=== PATIENT | male | born 1985 | race African-American/Black ===

== ENCOUNTER 2017-04-25 20:33 | Emergency (ER) | payer SELFPAY | END 2017-04-25 21:59 | disposition home or self-care (01) | LOC: ER 20:33 | DX: K04.7 Periapical abscess without sinus (principal) | CPT/HCPCS: 99283 ==

== ENCOUNTER 2019-02-23 16:11 | Emergency (ER) | payer OTHER ==
[~2019-02-23] VITALS: Ht 175.3 cm; Wt 59.0 kg
[~2019-02-23 16:11] MED LIST: AMOX500C PO
[2019-02-23 16:29] VITALS: BP 138/81
[2019-02-23] MEDS: predniSONE 10 MG TABLET PO ONE (16:54)
[2019-02-23] MEDS: BENZONATATE 100 MG CAPSULE. PO ONE (16:54)
[2019-02-23] MEDS: ACETAMINOPHEN 500 MG TABLET PO ONE (16:54)
[2019-02-23] MEDS: IPRATRPIUM/ALBUTEROL 0.5/2.5MG 3 ML NEBU. NEB ONE (16:57)
--- NOTE | 2019-02-23 17:19 | RAD ---
CHEST PA LATERAL History: Cough. Fever. History of smoking. Comparison: None. Findings: Patchy right midlung ill-defined opacity. Calcified left lower lung granulomas. No pneumothorax. No pleural effusion. Normal heart size. Impression: 1. Patchy right midlung ill-defined opacity, may represent atelectasis or pneumonia. Recommend follow-up. Electronically signed by: Lalo Corcoran DO (02/23/2019 5:16 PM) [id number]
[2019-02-23 17:27] LABS: INFLUENZA A PATIENT NEGATIVE (NEGATIVE); INFLUENZA B PATIENT POSITIVE (NEGATIVE)
[2019-02-23] MEDS ORDERED: AZIT250T PO (17:42)
[2019-02-23] MEDS ORDERED: PRED50TA PO (17:42)
[2019-02-23] MEDS ORDERED: PROVENTIL HFA6.7 G2 INH (17:42)
[2019-02-23] MEDS ORDERED: BENZ100C PO (17:42)
--- NOTE | 2019-02-23 17:42 | PHYS DOC ---
Past Medical History Past Medical History: No Pertinent History Past Surgical History: No Surgical History Alcohol Use: None Drug Use: None Adult General Chief Complaint Chief Complaint: FEVER HPI HPI Patient is a 33 year old male patient who presents to the ED today complaining of subjective fevers, bodyaches, chills, cough, symptoms began 4 days ago after he got in close contact with a female friend who had similar symptoms. He is s a smoker Review of Systems Review of Systems Constitutional: Reports fever, body aches and chills Eyes: Denies change in visual acuity, redness, or eye pain [] HENT: Denies nasal congestion or sore throat [] Respiratory: Reports cough, denies shortness of breath [] Cardiovascular: No additional information not addressed in HPI [] GI: Denies abdominal pain, nausea, vomiting, bloody stools or diarrhea [] : Denies dysuria or hematuria [] Musculoskeletal: Denies back pain or joint pain [] Integument: Denies rash or skin lesions [] Neurologic: Denies headache, focal weakness or sensory changes [] All other systems were reviewed and found to be within normal limits, except as documented in this note. Current Medications Current Medications Current Medications Medications (Trade) Dose Ordered Sig/Ilan Start Time Stop Time Status Last Admin Dose Admin Acetaminophen (Tylenol) 1,000 mg 1X ONCE 02/23/19 17:00 02/23/19 17:01 DC 02/23/19 16:54 1,000 MG Albuterol/ Ipratropium (Duoneb) 3 ml 1X ONCE 02/23/19 17:00 02/23/19 17:01 DC 02/23/19 16:57 3 ML Benzonatate (Tessalon Perle) 100 mg 1X ONCE 02/23/19 17:00 02/23/19 17:01 DC 02/23/19 16:54 100 MG Prednisone (Prednisone) 50 mg 1X ONCE 02/23/19 17:00 02/23/19 17:01 DC 02/23/19 16:54 50 MG Allergies Allergies Allergies Coded Allergies Type Severity Reaction Last Updated Verified No Known Drug Allergies 04/25/17 No Physical Exam Physical Exam Constitutional: Well developed, well nourished, no acute distress, non-toxic appearance. [] HENT: Normocephalic, atraumatic, bilateral external ears normal, oropharynx mo ist, no oral exudates, nose normal. [] Eyes: PERRLA, EOMI, conjunctiva normal, no discharge. [] Neck: Normal range of motion, no tenderness, supple, no stridor. [] Cardiovascular:Heart rate regular rhythm, no murmur [] Lungs & Thorax: Bilateral breath sounds clear to auscultation [] Abdomen: Bowel sounds normal, soft, no tenderness, no masses, no pulsatile masses. [] Skin: Warm, dry, no erythema, no rash. [] Back: No tenderness, no CVA tenderness. [] Extremities: No tenderness, no cyanosis, no clubbing, ROM intact, no edema. [] Neurologic: Alert and oriented X 3, normal motor function, normal sensory function, no focal deficits noted. [] Psychologic: Affect normal, judgement normal, mood normal. [] Current Patient Data Vital Signs Vital Signs Date Time Temp Pulse Resp B/P (MAP) Pulse Ox O2 Delivery O2 Flow Rate FiO2 02/23/19 16:59 97 Room Air 02/23/19 16:29 100.2 105 18 138/81 (100) 100.2 Lab Values Laboratory Tests Test 02/23/19 16:39 Influenza Type A Antigen Negative (NEGATIVE) Influenza Type B Antigen Positive (NEGATIVE) EKG EKG [] Radiology/Procedures Radiology/Procedures []PROCEDURE: CHEST PA & LATERAL CHEST PA LATERAL History: Cough. Fever. History of smoking. Comparison: None. Findings: Patchy right midlung ill-defined opacity. Calcified left lower lung granulomas. No pneumothorax. No pleural effusion. Normal heart size. Impression: 1. Patchy right midlung ill-defined opacity, may represent atelectasis or pneumonia. Recommend follow-up. Electronically signed by: Joon Oliver DO (02/23/2019 5:16 PM) [id number] DICTATED and SIGNED BY: JOON OLIVER DO DATE: 02/23/19 1716 Course & Med Decision Making Course & Med Decision Making Pertinent Labs and Imaging studies reviewed. (See chart for details) This is a 33-year-old male patient presenting to the ED today with multiple complaints including subjective fevers, body aches, chills, cough, symptoms began 4 days ago. Temperature on arrival to the ED 100.2. Chest x-ray noted for possible right middle lobe pneumonia. Positive for influenza B, negative influenza A. Patient has been ill for more than 2 days, Tamiflu will not be of much benefit. Was discharged with azithromycin for the possible pneumonia on x-ray. Encouraged to consider smoking cessation. Instructed to rest and push fluids. Tylenol/Motrin for pain or fever. Follow-up with primary care doctor in the course of this week. Dragon Disclaimer Dragon Disclaimer This electronic medical record was generated, in whole or in part, using a voice recognition dictation system. Departure Departure Impression: Primary Impression: Influenza B Additional Impressions: Smoking addiction Right middle lobe pneumonia Fever Disposition: HOME, SELF-CARE Condition: STABLE Referrals: NO PCP (PCP) follow up with your doctor in 1-2 weeks Patient Instructions: Influenza A (H1N1), Pneumonia, Adult, [id number], Smoking Cessation Additional Instructions: You were evaluated in the emergency room you were positive for influenza B. This is a viral illness, you have been ill for more 2 days. At this point with influenza you need to push fluids, take Tylenol every 4 hours and Motrin every 6 hours. Maintain good hand hygiene, rest. You also have possible pneumonia on the right side of your lungs showing up on x-ray. We'll put you on antibiotics, ensure you complete them. Follow-up with your doctor in one week, come back to the ED at any point symptoms worsen. Scripts Benzonatate (TESSALON PERLE) 100 Mg Capsule 1 CAP PO TID, #30 CAP Prov: HECTOR COBB APRN 02/23/19 Albuterol Sulfate (Proventil Hfa) 6.7 Gm Hfa.aer.ad 1 PUFF INH PRN Q6HRS PRN for SHORTNESS OF BREATH, #1 INHALER Prov: HECTOR COBB APRN 02/23/19 Azithromycin (ZITHROMAX) 250 Mg Tablet 1 PKG PO UD, #1 PKG Prov: HECTOR COBB APRN 02/23/19 Prednisone (PREDNISONE) 50 Mg Tablet 1 TAB PO DAILY, #4 TAB Prov: HECTOR COBB APRN 02/23/19 Problem Qualifiers Additional Impressions: Right middle lobe pneumonia Pneumonia type: due to unspecified organism Qualified Codes: J18.9 - Pneumonia, unspecified organism Fever Fever type: unspecified Qualified Codes: R50.9 - Fever, unspecified HECTOR COBB APRN Feb 23, 2019 17:42
== END 2019-02-23 18:01 | disposition home or self-care (01) ==
LOC: ER 16:11
DX: J10.08 Influenza due to other identified influenza virus with other specified pneumonia (principal); F17.200 Nicotine dependence, unspecified, uncomplicated
CPT/HCPCS: 71046; 87804; 94640; 99285; J7512; J7620

== ENCOUNTER 2019-12-26 12:09 | Emergency (ER) | payer OTHER ==
[~2019-12-26] VITALS: Ht 172.7 cm; Wt 59.0 kg
[~2019-12-26 12:09] MED LIST changes: +AZIT250T PO; +BENZ100C PO; +PRED50TA PO; +PROVENTIL HFA6.7 G2 INH
[2019-12-26 13:07] VITALS: BP 158/92
[2019-12-26] MEDS ORDERED: LORazepam 0.5 MG TABLET PO ONE (13:30)
[2019-12-26 13:49] LABS: BILIRUBIN,URINE NEGATIVE (NEG); CLARITY,URINE CLEAR; COLOR,URINE YELLOW; NITRITE,URINE NEGATIVE (NEG); PH,URINE 6.5 (<5.0-8.0); PROTEIN,URINE NEGATIVE (NEG-TRACE); UROBILINOGEN,URINE 0.2 mg/dL (0.2 mg/dL)
[2019-12-26 13:55] LABS: AMPHETAMINE/METHAMPHETAMINE NEG (NEG); BARBITURATES NEG (NEG); BENZODIAZEPINES NEG (NEG); CANNABINOIDS POS (NEG); COCAINE NEG (NEG); METHADONE NEG (NEG); OPIATES NEG (NEG); PHENCYCLIDINE NEG (NEG)
[2019-12-26 13:57] LABS: BACTERIA,URINE 0 /HPF (0-FEW); RBC,URINE RARE /HPF (0-2); WBC,URINE RARE /HPF (0-4)
[2019-12-26] MEDS ORDERED: LORA-434 PO (14:41)
--- NOTE | 2019-12-26 14:42 | ED.ADGEN ---
Past Medical History Past Medical History: No Pertinent History Past Surgical History: No Surgical History Smoking Status: Former Smoker Alcohol Use: Occasionally Drug Use: None General Adult EDM: Chief Complaint: ANXIETY/PANIC ATTACK HPI: HPI: Patient is a 34 year old AA who presents to the emergency department with complaints of frequent panic attacks and left-sided numbness for the last week. Patient reports he had a left-sided headache a few days ago but currently denies any headache. He denies any weakness or recent injury. Patient denies any vision changes, nausea, vomiting, diarrhea, fever, cough, shortness of breath, chest pain, palpitations, abdominal pain, or body aches. He denies any suicidal or homicidal ideations. The patient states that he thinks he has been overthinking about stressful things in his life recently. He reports that he feels like he is unremarkable a lot of the time. He reports marijuana use on occasion but denies any other illicit drug use. Patient reports that he drinks socially he denies any cigarette use. The patient currently denies any pain. Review of Systems: Review of Systems: Complete ROS is negative unless otherwise noted in HPI. Current Medications: Current Medications Medications (Trade) Dose Ordered Sig/Ilan Start Time Stop Time Status Last Admin Dose Admin Lorazepam (Ativan) 1 mg 1X ONCE 12/26/19 13:30 12/26/19 13:31 DC 12/26/19 13:51 1 MG Allergies: Allergies: Allergies Coded Allergies Type Severity Reaction Last Updated Verified No Known Drug Allergies 04/25/17 No Physical Exam: PE: Constitutional: Well developed, well nourished, no acute distress, non-toxic appearance, appears anxious. [] HENT: Normocephalic, atraumatic, bilateral external ears normal, nose normal. [] Eyes: PERRLA, EOMI, conjunctiva normal, no discharge. [] Neck: Normal range of motion, no stridor. [] Cardiovascular:Heart rate regular rhythm Lungs & Thorax: Respirations even and unlabored, no retractions, no respiratory distress Skin: Warm, dry, no erythema, no rash. [] Extremities: No cyanosis, ROM intact, no edema. [] Neurologic: Alert and oriented X 3, no focal deficits noted. [] Psychologic: Affect normal, judgement normal, mood anxious Current Patient Data: Labs: Laboratory Tests Test 12/26/19 13:30 Urine Collection Type Unknown Urine Color Yellow Urine Clarity Clear Urine pH 6.5 (<5.0-8.0) Urine Specific [place] >=1.030 (1.000-1.030) Urine Protein Negative mg/dL (NEG-TRACE) Urine Glucose (UA) Negative mg/dL (NEG) Urine Ketones (Stick) Negative mg/dL (NEG) Urine Blood Negative (NEG) Urine Nitrite Negative (NEG) Urine Bilirubin Negative (NEG) Urine Urobilinogen Dipstick 0.2 mg/dL (0.2 mg/dL) Urine Leukocyte Esterase Negative (NEG) Urine RBC Rare /HPF (0-2) Urine WBC Rare /HPF (0-4) Urine Squamous Epithelial Cells None /LPF Urine Bacteria 0 /HPF (0-FEW) Urine Mucus Mod /LPF Urine Opiates Screen Neg (NEG) Urine Methadone Screen Neg (NEG) Urine Barbiturates Neg (NEG) Urine Phencyclidine Screen Neg (NEG) Urine Amphetamine/Methamphetamine Neg (NEG) Urine Benzodiazepines Screen Neg (NEG) Urine Cocaine Screen Neg (NEG) Urine Cannabinoids Screen Pos (NEG) Urine Ethyl Alcohol Neg (NEG) Vital Signs: Vital Signs Date Time Temp Pulse Resp B/P (MAP) Pulse Ox O2 Delivery O2 Flow Rate FiO2 12/26/19 13:07 98.6 81 18 158/92 (114) 99 Room Air 98.6 EKG: EKG: [] Heart Score: Risk Factors: Risk Factors: DM, Current or recent (<one month) smoker, HTN, HLP, family history of CAD, obesity. Risk Scores: Score 0 - 3: 2.5% MACE over next 6 weeks - Discharge Home Score 4 - 6: 20.3% MACE over next 6 weeks - Admit for Clinical Observation Score 7 - 10: 72.7% MACE over next 6 weeks - Early Invasive Strategies Radiology/Procedures: Radiology/Procedures: [] Course & Med Decision Making: Course & Med Decision Making Pertinent Labs and Imaging studies reviewed. (See chart for details) 34-year-old male who presents to the emergency department with complaints of frequent panic attacks and left-sided numbness. UA is unremarkable UDS is positive for marijuana, patient reported marijuana use. The patient was given 1 mg of Ativan, he reported feeling better after these medications. The patient denied any suicidal or homicidal ideations. I encouraged the patient to establish care with a primary care doctor I also encouraged him to follow-up with a mental health specialist for further evalu ation of anxiety and possible behavioral therapy treatment. We will prescribe 4 tablets of Ativan for the patient to take as needed for severe anxiety. I advised the patient to return to the ER if he began having suicidal or homicidal ideations Patient verbalized an understanding of home care, medications, follow-up, and return to ED instructions and was in agreement with the plan of care. [] William Disclaimer: William Disclaimer: This electronic medical record was generated, in whole or in part, using a voice recognition dictation system. Departure Departure Impression: Primary Impression: Panic attack as reaction to stress Disposition: 01 DC HOME SELF CARE/HOMELESS Condition: STABLE Referrals: NO PCP (PCP) Patient Instructions: Anxiety and Panic Attacks, [id number] Additional Instructions: Fill the prescription and use it as directed. Follow-up with a primary care doctor for a health physical. I recommend that you contact your EAP, for counseling/therapy. You may also follow-up with any of the behavioral health specialist provided to you in the packet that you were given. Return to the ER if you develop suicidal or homicidal ideations. [facility] [address] [place] [address] [facility] [address] [place] [address] [facility] [address] [facility] [place] [address] [facility] [address] [place] [address] [facility] [address] [place] [address] [facility] [address] [place] [address] [facility] [address] [place] [address] [facility] [address] [place] [address] [facility] [address] [place] [address] [facility] [address] [place] [address] Scripts Lorazepam (ATIVAN) 1 Mg Tablet 0.5-1 MG PO BID PRN for ANXIETY / AGITATION, #4 TAB 0 Refills Prov: ERICK MO APRN 12/26/19 ERICK MO APRN Dec 26, 2019 14:41
== END 2019-12-26 14:49 | disposition home or self-care (01) ==
LOC: ER 12:09
DX: F43.0 Acute stress reaction (principal); R20.0 Anesthesia of skin; R51.9 Headache, unspecified; Z87.891 Personal history of nicotine dependence
CPT/HCPCS: 80307; 81001; 99283

== ENCOUNTER 2020-01-15 16:24 | Emergency (ER) | payer SELFPAY ==
[~2020-01-15] VITALS: Ht 172.7 cm; Wt 59.0 kg
[~2020-01-15 16:24] MED LIST changes: +DIPH25TA64 PO; +LORA-434 PO; +LORA10CA PO; +METH4TAB2 PO
[2020-01-15] MEDS ORDERED: IV NORMAL SALINE 1000ML BAG 1,000 ML IV ONE (18:00)
[2020-01-15 18:01] LABS: RED BLOOD COUNT 4.78 x10^6/uL (4.30-5.70); WHITE BLOOD COUNT 17.6 x10^3/uL (4.0-11.0)
[2020-01-15 18:02] LABS: BASO % 0 % (0-3); EOS % 0 % (0-3); HEMATOCRIT 40.5 % (39.0-53.0); HEMOGLOBIN 13.5 g/dL (13.0-17.5); LYMPH # 1.3 x10^3/uL (1.0-4.8); LYMPH % 7 % (24-48); MEAN CORPUSCULAR HEMOGLOBIN 28 pg (25-35); MEAN CORPUSCULAR HGB CONC 33 g/dL (31-37); MEAN CORPUSCULAR VOLUME 85 fL (79-100); MONO % 11 % (0-9); NEUT # 14.3 x10^3/uL (1.8-7.7); NEUT % 81 % (31-73); PLATELET COUNT 280 x10^3/uL (140-400); RED CELL DISTRIBUTION WIDTH 14.1 % (11.5-14.5)
[2020-01-15 19:10] LABS: BILIRUBIN,URINE NEGATIVE (NEG); CLARITY,URINE CLEAR; COLOR,URINE YELLOW; NITRITE,URINE NEGATIVE (NEG); PROTEIN,URINE NEGATIVE (NEG-TRACE); UROBILINOGEN,URINE 0.2 mg/dL (0.2 mg/dL)
[2020-01-15 19:12] LABS: AMPHETAMINE/METHAMPHETAMINE NEG (NEG); BARBITURATES NEG (NEG); BENZODIAZEPINES NEG (NEG); CANNABINOIDS POS (NEG); COCAINE NEG (NEG); METHADONE NEG (NEG); OPIATES NEG (NEG); PHENCYCLIDINE NEG (NEG)
[2020-01-15 19:19] LABS: % BANDS 7 % (0-9); % EOS 1 % (0-5); % LYMPHS 8 % (24-48); % MONOS 9 % (0-10); % SEGS 75 % (35-66); PLT ESTIMATE ADEQUATE (ADEQUATE); TOXIC GRANULATION SLIGHT; TOXIC VACUOLATION SLIGHT
[2020-01-15 19:20] LABS: PLATELET CLUMP PRESENT
[2020-01-15 19:32] LABS: BACTERIA,URINE 0 /HPF (0-FEW); RBC,URINE 0 /HPF (0-2); WBC,URINE RARE /HPF (0-4)
[2020-01-15 19:50] LABS: CALCIUM 8.6 mg/dL (8.5-10.1); CREATININE 0.9 mg/dL (0.7-1.3); GFR 117.6; POTASSIUM 3.6 mmol/L (3.5-5.1)
[2020-01-15 19:55] LABS: ALBUMIN/GLOBULIN RATIO 0.8 (1.0-1.7); TOTAL BILIRUBIN 0.7 mg/dL (0.2-1.0); TOTAL PROTEIN 6.8 g/dL (6.4-8.2)
--- NOTE | 2020-01-15 20:38 | ED.ADGEN ---
Past Medical History Past Medical History: No Pertinent History Past Surgical History: No Surgical History Smoking Status: Former Smoker Alcohol Use: Occasionally Drug Use: None Social History Narrative: "I STOPPED MARIJUANA 1 MONTH AGO." General Adult EDM: Chief Complaint: BACK PAIN OR INJURY HPI: HPI: Patient is a 34 year old AA male who presents to the emergency department with complaints of bilateral low back pain and intermittent episodes of excessive sweating for the last 2 days. Patient states that he noticed his urine was dark yesterday but he drank a lot of fluid and his urine looks normal today. He denies any dysuria, hematuria, difficulty urinating, saddle anesthesia, or loss of bowel/bladder control. Patient also complains of left eyelid swelling for the last week, he denies any vision changes or crusting of his eye, patient reports that his left eye has also been red and tearing. He denies any fever, shortness of breath, chest pain, palpitations, abdominal pain, nausea, vomiting, or diarrhea. Patient reports he has had a dry cough for weeks, he states that he attributes it to his history of smoking. He denies any recent contact with anybody who has COVID-19. Patient states the back pain was severe last night but he currently denies any pain. Review of Systems: Review of Systems: Complete ROS is negative unless otherwise noted in HPI. Current Medications: Current Medications Medications (Trade) Dose Ordered Sig/Ilan Start Time Stop Time Status Last Admin Dose Admin Sodium Chloride 1,000 ml @ 1,000 mls/hr 1X ONCE 01/15/20 18:00 01/15/20 18:59 DC 01/15/20 18:07 1,000 MLS/HR Allergies: Allergies: Allergies Coded Allergies Type Severity Reaction Last Updated Verified No Known Drug Allergies 04/25/17 No Physical Exam: PE: See Above Constitutional: Well developed, well nourished, no acute distress, non-toxic appearance. [] HENT: Normocephalic, atraumatic, bilateral external ears normal, oropharynx moist, no oral exudates, nose normal. [] Eyes: PERRLA, EOMI, bilateral conjunctiva injected, mild swelling noted to the upper and lower eyelids, no purulent drainage, no periorbital tenderness to palpation Neck: Normal range of motion, no stridor. [] Cardiovascular:Heart rate regular rhythm, Lungs & Thorax: Respirations even and unlabored, no retractions, no respiratory distress Abdomen: soft, no tenderness, no masses Skin: Warm, dry, no erythema, no rash. [] Back: No tenderness, no CVA tenderness. [] Extremities: No cyanosis, ROM intact, no edema. [] Neurologic: Alert and oriented X 3, normal motor function, normal sensory function, no focal deficits noted. [] Psychologic: Affect normal, judgement normal, mood normal. [] Current Patient Data: Labs: Laboratory Tests Test 01/15/20 16:55 01/15/20 17:15 01/15/20 18:45 01/15/20 19:25 Glucose (Fingerstick) 149 mg/dL (70-99) H White Blood Count 17.6 x10^3/uL (4.0-11.0) H Red Blood Count 4.78 x10^6/uL (4.30-5.70) Hemoglobin 13.5 g/dL (13.0-17.5) Hematocrit 40.5 % (39.0-53.0) Mean Corpuscular Volume 85 fL (79-100) Mean Corpuscular Hemoglobin 28 pg (25-35) Mean Corpuscular Hemoglobin Concent 33 g/dL (31-37) Red Cell Distribution Width 14.1 % (11.5-14.5) Platelet Count 280 x10^3/uL (140-400) Neutrophils (%) (Auto) 81 % (31-73) H Lymphocytes (%) (Auto) 7 % (24-48) L Monocytes (%) (Auto) 11 % (0-9) H Eosinophils (%) (Auto) 0 % (0-3) Basophils (%) (Auto) 0 % (0-3) Neutrophils # (Auto) 14.3 x10^3/uL (1.8-7.7) H Lymphocytes # (Auto) 1.3 x10^3/uL (1.0-4.8) Monocytes # (Auto) 2.0 x10^3/uL (0.0-1.1) H Eosinophils # (Auto) 0.0 x10^3/uL (0.0-0.7) Basophils # (Auto) 0.0 x10^3/uL (0.0-0.2) Segmented Neutrophils % 75 % (35-66) H Band Neutrophils % 7 % (0-9) Lymphocytes % 8 % (24-48) L Monocytes % 9 % (0-10) Eosinophils % 1 % (0-5) Toxic Granulation Slight Toxic Vacuolation Slight Platelet Estimate Adequate (ADEQUATE) Platelet Clumps, EDTA Present Urine Collection Type Void Urine Color Yellow Urine Clarity Clear Urine pH 6.0 (<5.0-8.0) Urine Specific [place] 1.025 (1.000-1.030) Urine Protein Negative mg/dL (NEG-TRACE) Urine Glucose (UA) Negative mg/dL (NEG) Urine Ketones (Stick) Trace mg/dL (NEG) Urine Blood Negative (NEG) Urine Nitrite Negative (NEG) Urine Bilirubin Negative (NEG) Urine Urobilinogen Dipstick 0.2 mg/dL (0.2 mg/dL) Urine Leukocyte Esterase Negative (NEG) Urine RBC 0 /HPF (0-2) Urine WBC Rare /HPF (0-4) Urine Squamous Epithelial Cells None /LPF Urine Bacteria 0 /HPF (0-FEW) Urine Mucus Marked /LPF Urine Opiates Screen Neg (NEG) Urine Methadone Screen Neg (NEG) Urine Barbiturates Neg (NEG) Urine Phencyclidine Screen Neg (NEG) Urine Amphetamine/Methamphetamine Neg (NEG) Urine Benzodiazepines Screen Neg (NEG) Urine Cocaine Screen Neg (NEG) Urine Cannabinoids Screen Pos (NEG) Urine Ethyl Alcohol Neg (NEG) Sodium Level 137 mmol/L (136-145) Potassium Level 3.6 mmol/L (3.5-5.1) Chloride Level 102 mmol/L (98-107) Carbon Dioxide Level 25 mmol/L (21-32) Anion Gap 10 (6-14) Blood Urea Nitrogen 9 mg/dL (8-26) Creatinine 0.9 mg/dL (0.7-1.3) Estimated GFR (Cockcroft-Gault) 117.6 BUN/Creatinine Ratio 10 (6-20) Glucose Level 89 mg/dL (70-99) Calcium Level 8.6 mg/dL (8.5-10.1) Total Bilirubin 0.7 mg/dL (0.2-1.0) Aspartate Amino Transferase (AST) 13 U/L (15-37) L Alanine Aminotransferase (ALT) 21 U/L (16-63) Alkaline Phosphatase 46 U/L (46-116) Total Protein 6.8 g/dL (6.4-8.2) Albumin 3.0 g/dL (3.4-5.0) L Albumin/Globulin Ratio 0.8 (1.0-1.7) L Laboratory Tests 01/15/20 17:15 Laboratory Tests 01/15/20 19:25 Vital Signs: Vital Signs Date Time Temp Pulse Resp B/P (MAP) Pulse Ox O2 Delivery O2 Flow Rate FiO2 01/15/20 22:52 88 120/63 (82) 97 Room Air 01/15/20 16:43 98.2 24 98.2 EKG: EKG: [] Heart Score: Risk Factors: Risk Factors: DM, Current or recent (<one month) smoker, HTN, HLP, family history of CAD, obesity. Risk Scores: Score 0 - 3: 2.5% MACE over next 6 weeks - Discharge Home Score 4 - 6: 20.3% MACE over next 6 weeks - Admit for Clinical Observation Score 7 - 10: 72.7% MACE over next 6 weeks - Early Invasive Strategies Radiology/Procedures: Radiology/Procedures: PROCEDURE: CT LUMBAR SPINE WO CONTRAST EXAMINATION: CT LUMBAR SPINE WO CONTRAST, 01/15/2020 8:21 PM CLINICAL INDICATION: Intermittent low back pain COMPARISON: None TECHNIQUE: Helical CT imaging performed of the lumbar spine without the use of intravenous contrast. Sagittal and coronal reformats were obtained. One or more of the following individualized dose reduction techniques were utilized for this examination: 1. Automated exposure control 2. Adjustment of the mA and/or kV according to patient size 3. Use of iterative reconstruction technique. FINDINGS: No acute fracture. Alignment is normal. Disc spaces are maintained and facet joints are normal. There is transitional anatomy at the lumbosacral junction on the left. No evidence of disc herniation. No canal or foraminal narrowing. Visualized portion of the retroperitoneum is normal. IMPRESSION: Normal CT of the lumbar spine.[] PROCEDURE: CHEST PA & LATERAL EXAM: CHEST PA LATERAL INDICATION: Reason: dry cough and intermittent back pain / Spl. Instructions: / History: . TECHNIQUE: PA and lateral views COMPARISON: Chest x-ray 02/23/2019. FINDINGS: The heart size is normal. The great vessels appear unremarkable. There is no hilar or mediastinal mass. The lungs show consolidation in the right lower lobe and to a lesser extent in the right middle lobe. Possible developing infiltrate in the medial lingula as well. There is no pleural effusion or pneumothorax. There are no significant osseous abnormalities. IMPRESSION: Multifocal pneumonia involving the lower lobe and right middle lobe, possibly the lingula as well.. Course & Med Decision Making: Course & Med Decision Making Pertinent Labs and Imaging studies reviewed. (See chart for details) []I have reviewed the PA/DIAMOND BLENDER's note and Plan of Care. I was available for consultation as needed during the patient's visit in the emergency department. I agree with the clinical impression, plans and disposition. Noraon Disclaimer: William Disclaimer: This electronic medical record was generated, in whole or in part, using a voice recognition dictation system. Departure Departure Impression: Primary Impression: Right middle lobe pneumonia Additional Impressions: Right lower lobe pneumonia Person under investigation for COVID-19 Conjunctivitis Disposition: 01 DC HOME SELF CARE/HOMELESS Condition: STABLE Referrals: NO PCP (PCP) Patient Instructions: Conjunctivitis (Viral and Bacterial), Pneumonia, Adult, [id number] Additional Instructions: Fill the prescription(s) and use as directed. Alternate Tylenol and ibuprofen as needed for pain/fever. Apply warm, moist washcloths to eyes needed for comfort. Avoid airway irritants such as dust, pollen, smoke, perfumes, and animal dander. Increase clear fluids. Follow the following COVID-19 instructions: Return to the ER if your symptoms worsen, you become short of breath, or you develop a fever. You have been tested for or diagnosed with COVID-19. It is an infection caused by a new type of coronavirus. COVID-19 will cause cold-like or mild flu symptoms in most. It can cause more severe symptoms like problems breathing in some. There is no treatment for COVID-19. The body will clear the infection over time. Self-care will help to ease discomfort. Steps to Take: Self-Care Rest as needed. Healthy habits may help you feel better. Steps include: Choose healthy foods including fruits and vegetables. Drink water throughout the day. Get plenty of sleep each night. If you smoke, try to quit. It may ease breathing. Avoid alcohol. Keep Others Healthy The virus can spread to others. Droplets are released every time you sneeze or cough. The droplets can get into the mouth, nose, or eyes of people near you and lead to infection. To lower the chances of spreading COVID-19 to others: Stay at home until your doctor has said it is safe to leave. If you tested positive this will mean staying isolated until both of the following are true: At least 7 days have passed since the start of illness. You are free of fever for at least 72 hours without the use of medicine. During this time: - Avoid public areas, events, or transportation. Do not return to work or school until your doctor has said it is safe to do so. - Call ahead if you need to go to a medical center. Let them know you may have COVID-19. It will help them guide you where to go. They may also ask you to wear a facemask when you come to the office. - If you call for emergency medical services, let them know you may have COVID- 19. While at home: - Try to avoid close contact with others. Stay about 6 feet away. - If possible, spend most of your time in a separate room from others. - Use a face mask if you will be in close contact with others such as sharing a room or vehicle. - Have someone wipe down common surfaces in the home. Use household regional facilities specialist every day on areas like doorknobs, counters, or sinks. - Cough or sneeze into a tissue. Throw the tissue away right after use. If a tissue is not available, cough or sneeze into your elbow. - Wash your hands often. Wash them after sneezing or coughing. Use soap and water and wash for at least 20 seconds. Alcohol based hand distributor cleaner can be used if soap and water is not available. - Do not prepare food for others. Avoid sharing personal items like forks, spoons, or toothbrushes. - Avoid close contact with pets while you are sick. There is no evidence of the virus passing to pets. This is a safety step until more is known about this virus. Isolation can be frustrating. Social interaction can help. Keep in touch with friends and family through phone and tech options. You can still interact with others in your home, just keep a safe distance of about 6 feet. Follow-up: Your doctors office will check in with you to see if there are any changes in your health. You may be asked to keep track of symptoms to share with them. They will also let you know when you are clear to be in public again. Problems to Look Out For: Contact your doctor if your recovery is not going as you expect. Get emergency care if you have problems such as: - Trouble breathing - Nonstop chest pain or pressure - Changes in awareness, confusion, or problems waking - Lips or face have bluish color - Worsening of symptoms If you think you have an emergency, call for emergency medical services right away. As taken from [facility] [address] [place] [address] [facility] [address] [place] [address] [facility] [address] [facility] [place] [address] [facility] [address] [place] [address] [facility] [address] [place] [address] [address] [place] [address] [address] [place] [address] [facility] [place] [address] [facility] [address] [place] [address] [facility] Department [address] [place] [address] Scripts Polymyxin B Sulf/Trimethoprim (POLYTRIM EYE DROPS) 10 Ml Drops 2 DROP EACHEYE Q6HRS for 7 Days, #10 ML 0 Refills Prov: ERICK MO APRN 01/15/20 Azithromycin (AZITHROMYCIN TABLET) 250 Mg Tablet 1 PKG PO UD for 5 Days, #6 TAB 0 Refills 2 the first day followed by 1 for days 2-5 Prov: ERICK MO APRN 01/15/20 Problem Qualifiers Primary Impression: Right middle lobe pneumonia Pneumonia type: due to unspecified organism Qualified Codes: J18.9 - Pneumonia, unspecified organism Additional Impressions: Right lower lobe pneumonia Pneumonia type: due to unspecified organism Qualified Codes: J18.9 - Pneumonia, unspecified organism Conjunctivitis Conjunctivitis type: acute Acute conjunctivitis type: unspecified Laterality: bilateral Qualified Codes: H10.33 - Unspecified acute conjunctivitis, bilateral ERICK MO APRN Jan 15, 2020 20:38 CHARLETTE OSBORN MD Jan 15, 2020 23:59
--- NOTE | 2020-01-15 21:03 | RAD ---
EXAMINATION: CT LUMBAR SPINE WO CONTRAST, 01/15/2020 8:21 PM CLINICAL INDICATION: Intermittent low back pain COMPARISON: None TECHNIQUE: Helical CT imaging performed of the lumbar spine without the use of intravenous contrast. Sagittal and coronal reformats were obtained. One or more of the following individualized dose reduction techniques were utilized for this examination: 1. Automated exposure control 2. Adjustment of the mA and/or kV according to patient size 3. Use of iterative reconstruction technique. FINDINGS: No acute fracture. Alignment is normal. Disc spaces are maintained and facet joints are normal. There is transitional anatomy at the lumbosacral junction on the left. No evidence of disc herniation. No canal or foraminal narrowing. Visualized portion of the retroperitoneum is normal. IMPRESSION: Normal CT of the lumbar spine. Electronically signed by: Cammie Chong MD (01/15/2020 9:00 PM) [id number]
--- NOTE | 2020-01-15 21:45 | RAD ---
EXAM: CHEST PA LATERAL INDICATION: Reason: dry cough and intermittent back pain / Spl. Instructions: / History: . TECHNIQUE: PA and lateral views COMPARISON: Chest x-ray 02/23/2019. FINDINGS: The heart size is normal. The great vessels appear unremarkable. There is no hilar or mediastinal mass. The lungs show consolidation in the right lower lobe and to a lesser extent in the right middle lobe. Possible developing infiltrate in the medial lingula as well. There is no pleural effusion or pneumothorax. There are no significant osseous abnormalities. IMPRESSION: Multifocal pneumonia involving the lower lobe and right middle lobe, possibly the lingula as well.. Electronically signed by: Ashley Guzman MD (01/15/2020 9:42 PM) [facility] [place]
[2020-01-15] MEDS ORDERED: AZIT250T6 PO (22:00)
[2020-01-15] MEDS ORDERED: POLY10DR EACHEYE (22:00)
[2020-01-15 22:52] VITALS: BP 120/63
== END 2020-01-15 23:02 | disposition home or self-care (01) ==
LOC: ER 16:24
DX: J18.9 Pneumonia, unspecified organism (principal); H10.33 Unspecified acute conjunctivitis, bilateral; R61 Generalized hyperhidrosis; R60.0 Localized edema; R05 Cough; Z87.891 Personal history of nicotine dependence
CPT/HCPCS: 36415; 71046; 72131; 80053; 80307; 81001; 82962; 85007; 85025; 96360; 99285; J7030

== ENCOUNTER 2020-06-26 14:00 | Emergency (ER) | payer OTHER ==
[~2020-06-26] VITALS: Ht 172.7 cm; Wt 59.2 kg
[~2020-06-26 14:00] MED LIST changes: +AZIT250T6 PO; +POLY10DR EACHEYE
[2020-06-26 14:09] VITALS: BP 121/78
[2020-06-26] MEDS ORDERED: FLUORESCEIN OPHTH TEST STRIP. OS ONE (15:00)
[2020-06-26] MEDS ORDERED: TETRACAINE 0.5% OPHTH SOLUTION 4ML BOTTLE. OS ONE (15:00)
[2020-06-26] MEDS ORDERED: POLY10DR LEFTEYE (15:33)
--- NOTE | 2020-06-26 15:34 | ED.ADGEN ---
Past Medical History Past Medical History: No Pertinent History Past Surgical History: No Surgical History Smoking Status: Former Smoker Alcohol Use: Occasionally Drug Use: None General Adult EDM: Chief Complaint: EYE PROBLEMS HPI: HPI: Patient is a 34 year old AA male who presents to the emergency department with complaints of left eye redness, and left upper and lower eyelid swelling since awakening this morning. Patient denies any itching, crusting, or tearing from his eye. He denies any purulent drainage. Patient denies any recent injury, fever, decreased visual acuity, photosensitivity, or pain with ocular movements. Patient currently denies any pain. Review of Systems: Review of Systems: Complete ROS is negative unless otherwise noted in HPI. Current Medications: Current Medications Medications (Trade) Dose Ordered Sig/Ilan Start Time Stop Time Status Last Admin Dose Admin Fluorescein Sodium (Ful-Melinda) 1 strip 1X ONCE 06/26/20 15:00 06/26/20 15:01 DC Tetracaine HCl (Tetracaine) 1 drop 1X ONCE 06/26/20 15:00 06/26/20 15:01 DC Allergies: Allergies: Allergies Coded Allergies Type Severity Reaction Last Updated Verified No Known Drug Allergies 04/25/17 No Physical Exam: PE: See Above Constitutional: Well developed, well nourished, no acute distress, non-toxic appearance. [] HENT: Normocephalic, atraumatic, bilateral external ears normal, nose normal. [] Eyes: PERRLA, EOMI, right eye conjunctiva normal, no discharge bilaterally, no photosensitivity; left eye conjunctive are injected, significant edema of left upper and lower eyelids, no visible hordeolum or chalazion. [] Neck: Normal range of motion, no stridor. [] Cardiovascular:Heart rate regular rhythm Lungs & Thorax: Respirations even and unlabored, no retractions, no respiratory distress Skin: Warm, dry, no rash; mild erythema of left upper and lower eyelids, no tenderness to palpation of left orbit Extremities: No cyanosis, ROM intact, no edema. [] Neurologic: Alert and oriented X 3, no focal deficits noted. [] Psychologic: Affect normal, judgement normal, mood normal. [] Current Patient Data: Vital Signs: Vital Signs Date Time Temp Pulse Resp B/P (MAP) Pulse Ox O2 Delivery O2 Flow Rate FiO2 06/26/20 14:09 98.1 81 18 121/78 (92) 96 Room Air 98.1 EKG: EKG: [] Heart Score: C/O Chest Pain: No Risk Scores: Score 0 - 3: 2.5% MACE over next 6 weeks - Discharge Home Score 4 - 6: 20.3% MACE over next 6 weeks - Admit for Clinical Observation Score 7 - 10: 72.7% MACE over next 6 weeks - Early Invasive Strategies Radiology/Procedures: Radiology/Procedures: Using tetracaine and fluroscein the patient's eye was examined under Wood's lamp and no area of uptake was noted. Patient's ocular symptoms have stabilized while they have been evaluated in the department and are appropriate for outpatient work up. No evidence of ruptured globe, retinal detachment, acute angle closure glaucoma, or deep space infection. Plan for 24 hour ophthalmologic follow up. [] Course & Med Decision Making: Course & Med Decision Making Pertinent Labs and Imaging studies reviewed. (See chart for details) [] Dragon Disclaimer: Dragon Disclaimer: This electronic medical record was generated, in whole or in part, using a voice recognition dictation system. Departure Departure Impression: Primary Impression: Conjunctivitis Additional Impression: Eye swollen, left Disposition: HOME / SELF CARE / HOMELESS Condition: STABLE Referrals: RONAL NARAYANAN MD (PCP) DEVANG RODRIGUEZ MD Patient Instructions: Conjunctivitis (Viral and Bacterial) Additional Instructions: Fill the prescription(s) and use as directed. Apply cool compress to left eye as needed for comfort. Recommend use of baby shampoo to wash eyelids. Follow-up with Dr. Rodriguez for reevaluation tomorrow, follow-up with your primary care doctor this week, return to the emergency room if your symptoms worsen. Scripts Polymyxin B Sulf/Trimethoprim (POLYTRIM EYE DROPS) 10 Ml Drops 2 DROP LEFTEYE Q6HRS for 7 Days, #10 ML 0 Refills Prov: ERICK MO APRN 06/26/20 Attending Signature Attending Signature I have participated in the care of this patient and I have reviewed and agree with all pertinent clinical information above including history, exam, and recommendations. Problem Qualifiers Primary Impression: Conjunctivitis Conjunctivitis type: acute Acute conjunctivitis type: unspecified Laterality: left Qualified Codes: H10.32 - Unspecified acute conjunctivitis, left eye ERICK MO BUSINESS SUPPORT ASSISTANT Jun 26, 2020 15:33 SOFIE TO DO Jun 26, 2020 18:31
== END 2020-06-26 15:45 | disposition home or self-care (01) ==
LOC: ER 14:00
DX: H10.32 Unspecified acute conjunctivitis, left eye (principal); R60.0 Localized edema; Z87.891 Personal history of nicotine dependence
CPT/HCPCS: 99283

== ENCOUNTER 2020-08-29 10:46 | Emergency (ER) | payer OTHER ==
[~2020-08-29] VITALS: Ht 172.7 cm; Wt 66.2 kg
[~2020-08-29 10:46] MED LIST changes: +POLY10DR LEFTEYE
[2020-08-29] MEDS ORDERED: ASPIRIN 325 MG TABLET PO ONE (11:15)
[2020-08-29] MEDS ORDERED: LIDO:MAALOX 1:1 20 ML SINGLE DOSE. SWSW ONE (11:15)
[2020-08-29 11:37] LABS: CALCIUM 8.2 mg/dL (8.5-10.1); CREATININE 0.9 mg/dL (0.7-1.3); GFR 116.9; POTASSIUM 4.1 mmol/L (3.5-5.1)
[2020-08-29 11:39] LABS: BASO % 1 % (0-3); EOS # 0.1 x10^3/uL (0.0-0.7); EOS % 3 % (0-3); HEMATOCRIT 41.3 % (39.0-53.0); HEMOGLOBIN 13.7 g/dL (13.0-17.5); LYMPH # 2.3 x10^3/uL (1.0-4.8); LYMPH % 48 % (24-48); MEAN CORPUSCULAR HEMOGLOBIN 29 pg (25-35); MEAN CORPUSCULAR HGB CONC 33 g/dL (31-37); MEAN CORPUSCULAR VOLUME 86 fL (79-100); MONO # 0.7 x10^3/uL (0.0-1.1); MONO % 15 % (0-9); NEUT # 1.6 x10^3/uL (1.8-7.7); NEUT % 33 % (31-73); PLATELET COUNT 248 x10^3/uL (140-400); RED CELL DISTRIBUTION WIDTH 15.3 % (11.5-14.5); WHITE BLOOD COUNT 4.7 x10^3/uL (4.0-11.0)
[2020-08-29 11:43] LABS: ALBUMIN 3.6 g/dL (3.4-5.0); ALBUMIN/GLOBULIN RATIO 1.1 (1.0-1.7); TOTAL BILIRUBIN 0.2 mg/dL (0.2-1.0); TOTAL PROTEIN 6.9 g/dL (6.4-8.2)
--- NOTE | 2020-08-29 11:49 | RAD ---
INDICATION: Reason: chest discomfort / Spl. Instructions: / History: COMPARISON: January 2020 FINDINGS: Single view of chest obtained. No focal airspace consolidation. Cardiomediastinal contour unremarkable. No acute osseous abnormality. IMPRESSION: * No focal airspace consolidation or edema. Electronically signed by: Selvin Wylie MD (08/29/2020 11:47 AM) [id number]
--- NOTE | 2020-08-29 11:52 | PHYS DOC ---
Past Medical History Past Medical History: No Pertinent History Past Surgical History: Other Additional Past Surgical Histo: achilles tendon repair Smoking Status: Current Every Day Smoker Additional Information: 2 cigars daily Alcohol Use: Occasionally Drug Use: None General Adult EDM: Chief Complaint: CHEST PAIN HPI: HPI: Patient is a 35 year old male with no significant medical history who presents to the ED today complaining of chest discomfort that began this morning after a night of "heavy drinking and smoking cigarettes. Patient denies any pain. Denies any nausea, vomiting, diaphoresis, abdominal pain. Denies any need for help with alcohol use. He states he had 2 half pints of hard liquor with friends. Patient denies any personal family history of cardiac events including heart attack and before the age of 50 Review of Systems: Review of Systems: Constitutional: Denies fever or chills. [] Eyes: Denies change in visual acuity. [] HENT: Denies nasal congestion or sore throat. [] Respiratory: Denies cough or shortness of breath. [] Cardiovascular: Reports chest discomfort GI: Denies abdominal pain, nausea, vomiting, bloody stools or diarrhea. [] : Denies dysuria. [] Musculoskeletal: Denies back pain or joint pain. [] Integument: Denies rash. [] Neurologic: Denies headache, focal weakness or sensory changes. [] Psychiatric: Denies depression or anxiety. [] Heart Score: C/O Chest Pain: Yes HEART Score for Chest Pain: HEART Score for Chest Pain Response (Comments) Value History Slighlty/Non-Suspicious 0 ECG Normal 0 Age < 45 0 Risk Factors No Risk Factors 0 Troponin < Normal Limit 0 Total 0 Risk Factors: Risk Factors: DM, Current or recent (<one month) smoker, HTN, HLP, family history of CAD, obesity. Risk Scores: Score 0 - 3: 2.5% MACE over next 6 weeks - Discharge Home Score 4 - 6: 20.3% MACE over next 6 weeks - Admit for Clinical Observation Score 7 - 10: 72.7% MACE over next 6 weeks - Early Invasive Strategies Current Medications: Current Medications Medications (Trade) Dose Ordered Sig/Ilan Start Time Stop Time Status Last Admin Dose Admin Aspirin (Enoc Aspirin) 325 mg 1X ONCE 08/29/20 11:15 08/29/20 11:16 DC Multi-Ingredient Mouthwash/Gargle (Gi Cocktail) 20 ml 1X ONCE 08/29/20 11:15 08/29/20 11:16 DC Allergies: Allergies: Allergies Coded Allergies Type Severity Reaction Last Updated Verified No Known Drug Allergies 08/29/20 No Physical Exam: PE: Constitutional: Well developed, well nourished, no acute distress, non-toxic appearance. [] HENT: Normocephalic, atraumatic, bilateral external ears normal, oropharynx moist, no oral exudates, nose normal. [] Eyes: PERRLA, EOMI, conjunctiva normal, no discharge. [] Neck: Normal range of motion, no tenderness, supple, no stridor. [] Cardiovascular:Heart rate regular rhythm, no murmur [] Lungs & Thorax: Bilateral breath sounds clear to auscultation [] Abdomen: Bowel sounds normal, soft, no tenderness, no masses, no pulsatile masses. [] Skin: Warm, dry, no erythema, no rash. [] Back: No tenderness, no CVA tenderness. [] Extremities: No tenderness, no cyanosis, no clubbing, ROM intact, no edema. [] Neurologic: Alert and oriented X 3, normal motor function, normal sensory function, no focal deficits noted. [] Psychologic: Affect normal, judgement normal, mood normal. [] Current Patient Data: Labs: Laboratory Tests Test 08/29/20 11:05 White Blood Count 4.7 x10^3/uL (4.0-11.0) Red Blood Count 4.80 x10^6/uL (4.30-5.70) Hemoglobin 13.7 g/dL (13.0-17.5) Hematocrit 41.3 % (39.0-53.0) Mean Corpuscular Volume 86 fL (79-100) Mean Corpuscular Hemoglobin 29 pg (25-35) Mean Corpuscular Hemoglobin Concent 33 g/dL (31-37) Red Cell Distribution Width 15.3 % (11.5-14.5) H Platelet Count 248 x10^3/uL (140-400) Neutrophils (%) (Auto) 33 % (31-73) Lymphocytes (%) (Auto) 48 % (24-48) Monocytes (%) (Auto) 15 % (0-9) H Eosinophils (%) (Auto) 3 % (0-3) Basophils (%) (Auto) 1 % (0-3) Neutrophils # (Auto) 1.6 x10^3/uL (1.8-7.7) L Lymphocytes # (Auto) 2.3 x10^3/uL (1.0-4.8) Monocytes # (Auto) 0.7 x10^3/uL (0.0-1.1) Eosinophils # (Auto) 0.1 x10^3/uL (0.0-0.7) Basophils # (Auto) 0.0 x10^3/uL (0.0-0.2) Sodium Level 145 mmol/L (136-145) Potassium Level 4.1 mmol/L (3.5-5.1) Chloride Level 109 mmol/L (98-107) H Carbon Dioxide Level 26 mmol/L (21-32) Anion Gap 10 (6-14) Blood Urea Nitrogen 12 mg/dL (8-26) Creatinine 0.9 mg/dL (0.7-1.3) Estimated GFR (Cockcroft-Gault) 116.9 BUN/Creatinine Ratio 13 (6-20) Glucose Level 123 mg/dL (70-99) H Calcium Level 8.2 mg/dL (8.5-10.1) L Magnesium Level 2.0 mg/dL (1.8-2.4) Total Bilirubin 0.2 mg/dL (0.2-1.0) Aspartate Amino Transferase (AST) 15 U/L (15-37) Alanine Aminotransferase (ALT) 22 U/L (16-63) Alkaline Phosphatase 46 U/L (46-116) Total Protein 6.9 g/dL (6.4-8.2) Albumin 3.6 g/dL (3.4-5.0) Albumin/Globulin Ratio 1.1 (1.0-1.7) Lipase 52 U/L (73-393) L Laboratory Tests 08/29/20 11:05 Laboratory Tests 08/29/20 11:05 Vital Signs: Vital Signs Date Time Temp Pulse Resp B/P (MAP) Pulse Ox O2 Delivery O2 Flow Rate FiO2 08/29/20 10:59 98.1 77 16 134/92 (106) 99 Room Air 98.1 EKG: EK interpreted by Dr. Tejada sinus rhythm heart rate 68 no STEMI [] [address] Tejada sinus rhythm heart rate 77 no STEMI [] Radiology/Procedures: Radiology/Procedures: []PROCEDURE: PORTABLE CHEST 1V INDICATION: Reason: chest discomfort / Spl. Instructions: / History: COMPARISON: January 2020 FINDINGS: Single view of chest obtained. No focal airspace consolidation. Cardiomediastinal contour unremarkable. No acute osseous abnormality. IMPRESSION: * No focal airspace consolidation or edema. Electronically signed by: Kendra Bush MD (08/29/2020 11:47 AM) DESKTOP- [id number] DICTATED and SIGNED BY: KENDRA BUSH MD DATE: 08/29/20 [id number] 0 Course & Med Decision Making: Course & Med Decision Making Pertinent Labs and Imaging studies reviewed. (See chart for details) This is a 35-year-old male patient presenting to the ED today complaining of left-sided chest discomfort that began this morning after a night of heavy drinking and cigarette smoking. Patient denies any chest pain EKG is negative, troponin is normal. Cardiac work-up is negative. Patient was advised to avoid drinking and doing cigarettes. Recommended help for alcohol use which he refused. Discharge to home. Follow-up with PCP and ca rdiologist William Disclaimer: William Disclaimer: This electronic medical record was generated, in whole or in part, using a voice recognition dictation system. Departure Departure Impression: Primary Impression: Alcohol use Additional Impressions: Smoking addiction Chest pain Qualified Codes: R07.9 - Chest pain, unspecified Disposition: HOME / SELF CARE / HOMELESS Condition: STABLE Referrals: RONAL NARAYANAN MD (PCP) follow up in one week with your doctor MAX FRANKLIN MD follow up in one week Patient Instructions: Alcohol Intoxication, Smoking Cessation, Tips For Success Additional Instructions: You were evaluated in the emergency room, your cardiac work-up is negative, consider not using alcohol. Consider smoking cessation. Follow-up with your primary care doctor in 1 week or the provided cardiology. HECTOR COBB REGISTRATION MANAGER Aug 29, 2020 11:52
[2020-08-29 13:57] VITALS: BP 108/69
--- NOTE | 2020-08-29 16:10 | EKG ---
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
--- NOTE | 2020-08-29 16:10 | EKG ---
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
== END 2020-08-29 14:00 | disposition home or self-care (01) ==
LOC: ER 10:46
DX: R07.89 Other chest pain (principal); F17.210 Nicotine dependence, cigarettes, uncomplicated; F10.20 Alcohol dependence, uncomplicated; Y90.9 Presence of alcohol in blood, level not specified
CPT/HCPCS: 36415; 71045; 80053; 83690; 83735; 83880; 84443; 84484; 85025; 93005; 99285-25

== ENCOUNTER 2020-09-05 04:13 | Emergency (ER) | payer OTHER ==
[~2020-09-05] VITALS: Ht 172.7 cm; Wt 59.0 kg
[2020-09-05 04:21] VITALS: BP 126/87
== END 2020-09-05 06:03 | disposition left against medical advice (07) ==
LOC: ER 04:13
DX: M54.6 Pain in thoracic spine (principal); M79.621 Pain in right upper arm; Z53.21 Procedure and treatment not carried out due to patient leaving prior to being seen by health care provider

== ENCOUNTER 2021-04-12 08:36 | Emergency (ER) | payer OTHER ==
[~2021-04-12] VITALS: Ht 170.2 cm; Wt 65.3 kg
--- NOTE | 2021-04-12 08:58 | PHYS DOC ---
Past Medical History Past Medical History: No Pertinent History Past Surgical History: Other Additional Past Surgical Histo: achilles tendon repair Smoking Status: Current Every Day Smoker Alcohol Use: Occasionally Drug Use: None General Adult EDM: Chief Complaint: OTHER COMPLAINTS HPI: HPI: Patient is a 36-year-old male coming to the emergency department because his partner was recently diagnosed with trichomonas on April 10, 2021. Patient states that is currently having no symptoms at this time and is here for prophylactic treatment. Denies penile discharge. Review of Systems: Review of Systems: Constitutional: Denies fever or chills Eyes: Denies redness or eye pain HENT: Denies nasal congestion or sore throat Respiratory: Denies cough or shortness of breath Cardiovascular: Denies chest pain or palpitations GI: Denies abdominal pain, nausea, or vomiting : Denies dysuria or hematuria; denies any symptoms of STD such as penile discharge or testicular pain Musculoskeletal: Denies back pain or joint pain Integument: Denies rash or skin lesions Neurologic: Denies headache, focal weakness or sensory changes Complete systems were reviewed and found to be within normal limits, except as documented in this note. Heart Score: C/O Chest Pain: N/A Current Medications: Current Medications Medications (Trade) Dose Ordered Sig/Ilan Start Time Stop Time Status Last Admin Dose Admin Azithromycin (Zithromax) 1,000 mg 1X ONCE 04/12/21 09:00 04/12/21 09:01 Ceftriaxone Sodium (Rocephin Im) 500 mg 1X ONCE 04/12/21 09:00 04/12/21 09:01 Allergies: Allergies: Allergies Coded Allergies Type Severity Reaction Last Updated Verified No Known Drug Allergies 08/29/20 No Physical Exam: PE: Constitutional: Well developed, well nourished, no acute distress, non-toxic appearance HENT: Normocephalic, atraumatic Eyes: conjunctiva normal, no discharge Neck: Normal range of motion, supple Lungs & Thorax: No respiratory distress, equal chest rise and fall Abdomen: Soft, no tenderness : Deferred by patient Skin: Warm, dry, no erythema, no rash Extremities: No tenderness, ROM intact, no edema Neurologic: Alert and oriented X 3, no focal deficits noted Psychologic: Affect normal, judgment normal EKG: EKG: [] Radiology/Procedures: Radiology/Procedures: [] Course & Med Decision Making: Course & Med Decision Making Pertinent Labs reviewed. (See chart for details) Patient presents to the emergency department searching prophylactic treatment after his girlfriend was recently diagnosed with trichomonas on April 10, 2021. While patient was in the emergency department he was prescribed metronidazole in addition he was also treated for gonorrhea and chlamydia while awaiting a urine STD test. Patient stable for discharge with outpatient follow-up with PCP. Discussed findings and plan with patient, who acknowledges understanding and agreement. Dragon Disclaimer: Dragon Disclaimer: This electronic medical record was generated, in whole or in part, using a voice recognition dictation system. Departure Departure Impression: Primary Impression: Concern about STD in male without diagnosis Disposition: HOME / SELF CARE / HOMELESS Condition: STABLE Referrals: RONAL NARAYANAN MD (PCP) Patient Instructions: Sexually Transmitted Disease, [id number], Trichomoniasis Scripts Metronidazole (METRONIDAZOLE) 500 Mg Tablet 1 TAB PO BID for 7 Days, #14 TAB 0 Refills Prov: RONAL JORDAN DO 04/12/21 RONAL JORDAN DO Apr 12, 2021 08:58
[2021-04-12 08:59] LABS: BILIRUBIN,URINE NEGATIVE (NEG); CLARITY,URINE CLEAR; COLOR,URINE YELLOW; NITRITE,URINE NEGATIVE (NEG); PH,URINE 6.5 (<5.0-8.0); PROTEIN,URINE NEGATIVE (NEG-TRACE); UROBILINOGEN,URINE 0.2 mg/dL (0.2 mg/dL)
[2021-04-12] MEDS ORDERED: AZITHROMYCIN 250 MG TABLET. PO ONE (09:00)
[2021-04-12] MEDS ORDERED: cefTRIAXone IM 500 MG VIAL. IM ONE (09:00)
[2021-04-12 09:11] LABS: BACTERIA,URINE 0 /HPF (0-FEW); RBC,URINE 0 /HPF (0-2); WBC,URINE 0 /HPF (0-4)
[2021-04-12] MEDS ORDERED: METR-34 PO (09:14)
[2021-04-12 09:45] VITALS: BP 120/81
== END 2021-04-12 09:48 | disposition home or self-care (01) ==
LOC: ER 08:36
DX: Z20.2 Contact with and (suspected) exposure to infections with a predominantly sexual mode of transmission (principal); F17.200 Nicotine dependence, unspecified, uncomplicated
CPT/HCPCS: 81001; 87491; 87591; 96372; 99283; J0696